=== PATIENT | female | born 2000 | race Caucasian/White ===

== ENCOUNTER 2021-02-24 01:35 | Emergency (ER) | payer OTHER ==
[2021-02-24 01:47] VITALS: TEMP 98.6; BMI 22.8
[2021-02-24] MEDS ORDERED: IBUPROFEN 400 MG TABLET (FP) PO ONE ×2 (02:51→02:54)
[2021-02-24] MEDS ORDERED: BUPRENORPHINE/NALOXONE 8 MG/2 MG FILM PACKET SL ONE (05:23)
[2021-02-24] MEDS ORDERED: KETOROLAC TROMETHAMINE 15 MG/ML VIAL IM ONE (05:23)
[2021-02-24] MEDS ORDERED: KETOROLAC TROMETHAMINE 15 MG/ML VIAL ONE (05:30)
[2021-02-24 05:40] VITALS: BP 122/80; PULSE 88
== END 2021-02-24 05:41 | disposition home or self-care (01) ==
LOC: JER 01:35
PROC: 3E0233Z Introduction of Anti-inflammatory into Muscle, Percutaneous Approach (ICD-10-PCS; principal; 2021-02-24)
DX: R07.9 Chest pain, unspecified (principal)
CPT/HCPCS: 71046-TC-FY; 84703; 93005; 93010; 96372; 99284-25